=== PATIENT | female | born 1965 | race African-American/Black ===

== ENCOUNTER 2024-01-13 10:15 | Observation (INO) | payer BC ==
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
[2024-01-13] MEDS ORDERED: ACETAMINOPHEN 500 MG TAB ONE (10:35)
[2024-01-13 11:39] LABS: Absolute Basophils 0.1 K/uL (0-0.5); Absolute Eosinophils 0.2 K/uL (0-0.5); Absolute Lymphocytes (CBC) 2.2 K/uL (0.7-4.9); Absolute Monocytes 0.6 K/uL (0.1-1.3); Absolute Neutrophil 3.7 K/uL (1.8-8.0); Eosinophils % 2.3 % (0-4.4); Hematocrit 41.3 % (36.0-45.0); Hemoglobin 13.3 g/dL (12.0-15.0); Lymphocytes % 32.8 % (15.3-44.8); MCH 28.9 pg (27.0-35.0); MCHC 32.2 g/dL (32.0-36.0); MCV 89.6 fL (80-100); MPV 9.2 fL (7.6-11.3); Monocytes % 9.3 % (3.3-12.3); Neutrophils % 54.6 % (41.7-73.7); Platelets 227 thou/uL (152-406); Red Cell Distribution Width 15.8 % (12.1-15.2)
--- NOTE | 2024-01-13 12:04 | RAD REPORT ---
EXAM DESCRIPTION: Abhijit Single View01/13/2024 11:48 am CLINICAL HISTORY: Shortness of breath COMPARISON: none FINDINGS: The lungs appear clear of acute infiltrate. The heart is mildly to moderately enlarged IMPRESSION: No acute abnormalities displayed
[2024-01-13 12:48] LABS: Albumin/Globulin Ratio 0.8 (1.1-1.8); Anion Gap 3.2 mEq/L (5.0-15.0); Bilirubin Total 0.6 mg/dL (0.2-1.0); Globulin 3.7 g/dL (2.3-3.5); Potassium 3.2 mEq/L (3.5-5.1); Protein, Total 6.7 g/dL (6.4-8.2); Troponin High Sensitivity 28.2 pg/mL (<58.9)
--- NOTE | 2024-01-13 13:00 | ER ---
Nurse's Notes [facility] Name: Perri Belle Age: 58 yrs Sex: Female : 1965 Arrival Date: 01/13/2024 Time: 10:15 Bed 16 Private MD: Diagnosis: Volume Overload;Hypokalemia;QT Prolongation Presentation: 01/12 10:23 Chief complaint: Patient states: SOB X2 DAYS WITH LEFT ARM AND ELEUTERIO LEG PAIN. DENIES kc6 CHEST PAIN. 10:23 Coronavirus screen: At this time, the client does not indicate any symptoms associated kc6 with coronavirus-19. Ebola Screen: No symptoms or risks identified at this time. Initial Sepsis Screen: Does the patient meet any 2 criteria? No. Patient's initial sepsis screen is negative. Does the patient have a suspected source of infection? No. Patient's initial sepsis screen is negative. Risk Assessment: Do you want to hurt yourself or someone else? Patient reports no desire to harm self or others. Onset of symptoms was January 13, 2024. 10:23 Method Of Arrival: Wheelchair kc6 10:23 Acuity: RICH 3 kc6 Triage Assessment: 10:23 General: Appears in no apparent distress. uncomfortable, obese, well groomed, well kc6 developed, Behavior is calm, cooperative, appropriate for age. Pain: Complains of pain in left arm, right leg and left leg. EENT: No signs and/or symptoms were reported regarding the EENT system. Neuro: Level of Consciousness is awake, alert, obeys commands, Oriented to person, place, time, situation, Appropriate for age. Cardiovascular: Denies chest pain, Heart tones S1 S2 present Capillary refill < 3 seconds Edema is 3+ to left ankle, left foot, right ankle and right foot pitting to left ankle, left foot, right ankle and right foot Rhythm is sinus rhythm. Respiratory: Reports shortness of breath at rest on exertion Airway is patent Trachea midline Respiratory effort is even, pursed lip, Respiratory pattern is symmetrical, tachypnea Onset: The symptoms/episode began/occurred 2 DAYS AGO, the patient has moderate shortness of breath. GI: No signs and/or symptoms were reported involving the gastrointestinal system. : No signs and/or symptoms were reported regarding the genitourinary system. Derm: No signs and/or symptoms reported regarding the dermatologic system. Skin is intact, is healthy with good turgor, Skin is pink, warm \T\ dry. Musculoskeletal: No signs and/or symptoms reported regarding the musculoskeletal system. Circulation, motion, and sensation intact. Capillary refill < 3 seconds, Range of motion: intact in all extremities. Historical: - Allergies: 10: No Known Allergies; aa5 - Home Meds: 10: Lisinopril Oral [Active]; Albuterol Inhl [Active]; aa5 - PMHx: 10: Hypertensive disorder; aa5 - PSHx: 10: PARTIAL HYSTERECTOMY; aa5 - Immunization history:: Adult Immunizations up to date. - Infectious Disease History:: Denies. - Social history:: Smoking status: Patient/guardian denies using tobacco, the patient reports quitting approximately 5 years ago. Screenin:23 [facility] ED Fall Risk Assessment (Adult) History of falling in the last 3 months, kc6 including since admission No falls in past 3 months (0 pts) Confusion or Disorientation No (0 pts) Intoxicated or Sedated No (0 pts) Impaired Gait No (0 pts) Mobility Assist Device Used No (0 pt) Altered Elimination No (0 pt) Score/Fall Risk Level 0 - 2 = Low Risk. Abuse screen: Denies threats or abuse. Denies injuries from another. Nutritional screening: No deficits noted. Tuberculosis screening: No symptoms or risk factors identified. Assessment: 10:23 Reassessment: PLEASE SEE TRIAGE. kc6 11:26 Reassessment: Patient appears in no apparent distress at this time. No changes from 6 previously documented assessment. Patient and/or family updated on plan of care and expected duration. Pain level reassessed. Patient is alert, oriented x 3, equal unlabored respirations, skin warm/dry/pink. Patient states symptoms have not improved. 12:27 Reassessment: Patient appears in no apparent distress at this time. No changes from kc6 previously documented assessment. Patient and/or family updated on plan of care and expected duration. Pain level reassessed. Patient is alert, oriented x 3, equal unlabored respirations, skin warm/dry/pink. 13:27 Reassessment: Patient appears in no apparent distress at this time. No changes from [facility] previously documented assessment. Patient and/or family updated on plan of care and expected duration. Pain level reassessed. Patient is alert, oriented x 3, equal unlabored respirations, skin warm/dry/pink. 14:27 Reassessment: Patient appears in no apparent distress at this time. No changes from 6 previously documented assessment. Patient and/or family updated on plan of care and expected duration. Pain level reassessed. Patient is alert, oriented x 3, equal unlabored respirations, skin warm/dry/pink. 15:36 Reassessment: Patient appears in no apparent distress at this time. No changes from kc6 previously documented assessment. Patient and/or family updated on plan of care and expected duration. Pain level reassessed. Patient is alert, oriented x 3, equal unlabored respirations, skin warm/dry/pink. Patient states feeling better. Patient states symptoms have improved. Vital Signs: 10:23 BP 165 / 113; Pulse 99; Resp 20 S; Temp 97.7(O); Pulse Ox 100% on R/A; Weight 144.7 kg kc6 (R); Height 5 ft. 7 in. (R); 11:26 BP 163 / 103; Pulse 84; Resp 20 S; Pulse Ox 100% on R/A; kc6 14:31 BP 166 / 113; Pulse 99; Resp 19 S; Pulse Ox 99% on R/A; kc6 10:23 Body Mass Index 49.96 (144.70 kg, 170.18 cm) [facility] ED Course: 10:16 Patient arrived in ED. im 10:16 Carlos Diaz MD is Attending Physician. ec2 10:16 Arm band placed on. aa5 10:18 Natacha Tovar, RN is Primary Nurse. kc6 10:23 Patient has correct armband on for positive identification. Bed in low position. Call [facility] light in reach. Side rails up X2. Adult w/ patient. Client placed on continuous cardiac and pulse oximetry monitoring. NIBP monitoring applied. baker test on. Warm blanket given. Pillow given. 10:40 Triage completed. kc6 10:42 EKG done, by ED staff, reviewed by Carlos Diaz MD. [facility] 11:11 Inserted saline lock: 20 gauge in right antecubital area, using aseptic technique. nj1 Blood collected. Ultrasound guided. Catheter tip well visualized within vasculature during placement. 11:50 XRAY Chest (1 view) In Process Unspecified. EDMS 13:00 Evin Morse MD is Hospitalizing Provider. ec2 13:05 Kunal Uribe is Hospitalizing Provider. ec2 15:45 No provider procedures requiring assistance completed. Patient admitted, IV remains in kc6 place. Administered Medications: 10:38 Drug: Acetaminophen PO 1000 mg PO once Route: PO; kc6 11:42 Follow up: Response: No adverse reaction kc6 13:15 Drug: Magnesium Sulfate IVPB 2 grams IVPB once over 2 hrs Route: IVPB; Infused Over: 2 kc6 hrs; Site: right antecubital; 14:30 Follow up: Response: No adverse reaction; IV Status: Completed infusion; IV Intake: kc6 100ml 13:16 Drug: Potassium Chloride PO 40 mEq PO once Route: PO; kc6 14:30 Follow up: Response: No adverse reaction kc6 13:16 Drug: Furosemide IVP 40 mg IVP once; give over 2 minutes Route: IVP; Site: right kc6 antecubital; 14:30 Follow up: Response: No adverse reaction kc6 14:24 Drug: Potassium Chloride IV 20 mEq IV at calculated rate once; administer over 1-2 kc6 hours Route: IV; Rate: calculated rate; Site: right antecubital; 15:37 Follow up: Response: No adverse reaction; IV Status: Infusion continued upon admission; kc6 IV Intake: 100ml Medication: 15:45 VIS not applicable for this client. kc6 Intake: 14:30 IV: 100ml; Total: 100ml. kc6 15:37 IV: 100ml; Total: 200ml. kc6 Outcome: 13:00 Decision to Hospitalize by Provider. ec2 15:45 Admitted to Med/surg accompanied by tech, via wheelchair, room 212, with chart, Report kc6 called to report faxed 15:45 Condition: good 15:45 Instructed on the need for admit, 15:45 Patient left the ED. kc6 Signatures: Dispatcher [employer] EDMS Nakia Mcconnell RN RN aa5 Natacha Tovar RN RN kc6 Carley Ness RN RN nj1 Teresa Cochran Edwin, MD MD ec2 Corrections: (The following items were deleted from the chart) 10:42 10:23 Cardiovascular: Denies chest pain, Heart tones S1 S2 present Capillary refill < 3 kc6 seconds Rhythm is sinus rhythm kc6
--- NOTE | 2024-01-13 13:01 | EDPHYS ---
Physician Documentation [facility] Name: Perri Belle Age: 58 yrs Sex: Female : 1965 Arrival Date: 01/13/2024 Time: 10:15 Bed 16 Private MD: ED Physician Carlos Diaz HPI: 01/12 10:35 This 58 yrs old Black Female presents to ER via Unassigned with complaints of Breathing ec2 Difficulty, Leg Swelling. 10:35 Patient arrives today for evaluation of difficulty breathing and lower extremity ec2 swelling. Patient reports she been having worsening difficulty breathing for the past several days. Patient reports no history of CHF or cardiac disease that she is aware. Reports no significant chest pain, no fevers, does have recent cough and cold symptoms.. Historical: - Allergies: 10:23 No Known Allergies; aa5 - Home Meds: 10:23 Lisinopril Oral [Active]; Albuterol Inhl [Active]; aa5 - PMHx: 10:23 Hypertensive disorder; aa5 - PSHx: 10:23 PARTIAL HYSTERECTOMY; aa5 - Immunization history:: Adult Immunizations up to date. - Infectious Disease History:: Denies. - Social history:: Smoking status: Patient/guardian denies using tobacco, the patient reports quitting approximately 5 years ago. ROS: 10:35 Constitutional: as per hpi ec2 Exam: 10:35 Constitutional: GEN: NAD Head: atraumatic Eyes: EOMI Ears: External ears are ec2 normal. CV: regular rate, 2+ lower extremity edema. LUNGS: no respiratory distress ABD: non-distended SKIN: no evidence of rashes MSK: no evidence of trauma NEURO: moves all extremities equally Vital Signs: 10:23 BP 165 / 113; Pulse 99; Resp 20 S; Temp 97.7(O); Pulse Ox 100% on R/A; Weight 144.7 kg kc6 (R); Height 5 ft. 7 in. (R); 11:26 BP 163 / 103; Pulse 84; Resp 20 S; Pulse Ox 100% on R/A; kc6 14:31 BP 166 / 113; Pulse 99; Resp 19 S; Pulse Ox 99% on R/A; kc6 10:23 Body Mass Index 49.96 (144.70 kg, 170.18 cm) kc6 MDM: 10:19 Patient medically screened. ec2 10:35 Data reviewed: vital signs. ED course: Patient arrives today for evaluation of lower ec2 extremity swelling along with difficulty breathing. Examination remarkable for cardiovascular findings as above. Will obtain a cardiac evaluation including EKG and chest x-ray. Evaluate for ACS, CHF, electrolyte disturbances. EKG obtained, independently reviewed and interpreted by me, shows normal sinus rhythm, rate 94, no acute ST segment elevations, QTc at upper limit of normal.. 12:20 ED course: Chest x-ray independently reviewed and interpreted by me, shows ec2 cardiomegaly, no pleural effusion or marked fluid identified.. 12:54 ED course: Metabolic profile shows hypokalemia with a potassium of 3.2. BNP elevated at ec2 3400, troponin within normal ranges. Will give the patient Lasix, admit for further cardiac evaluation given the patient's reported dyspnea on exertion as well as patient's lower extremity edema. Will supplement patient's potassium which I suspect is the cause of the pt's qt prolongation. . 01/12 10:26 Order name: CBC with Diff; Complete Time: 11:43 ec2 01/12 10:26 Order name: Troponin HS; Complete Time: 12:53 ec2 01/12 10:26 Order name: CMP; Complete Time: 12:53 ec2 01/12 10:26 Order name: BNP; Complete Time: 12:53 ec2 01/12 10:26 Order name: XRAY Chest (1 view); Complete Time: 12:19 ec2 01/12 13:24 Order name: Echo with Doppler EDVT 01/12 10:26 Order name: Cardiac monitoring; Complete Time: 10:38 ec2 01/12 10:26 Order name: EKG - Nurse/Tech; Complete Time: 10:38 ec2 01/12 10:26 Order name: IV Saline Lock; Complete Time: 11:15 ec2 01/12 10:26 Order name: Labs collected and sent; Complete Time: 11:15 ec2 01/12 10:26 Order name: O2 Per Protocol; Complete Time: 10:26 ec2 01/12 10:26 Order name: O2 Sat Monitoring; Complete Time: 10:26 ec2 01/12 11:42 Order name: Labs - recollect needed: recollect light green top; Complete Time: 12:03 bd Administered Medications: 10:38 Drug: Acetaminophen PO 1000 mg PO once Route: PO; kc6 11:42 Follow up: Response: No adverse reaction kc6 13:15 Drug: Magnesium Sulfate IVPB 2 grams IVPB once over 2 hrs Route: IVPB; Infused Over: 2 kc6 hrs; Site: right antecubital; 14:30 Follow up: Response: No adverse reaction; IV Status: Completed infusion; IV Intake: kc6 100ml 13:16 Drug: Potassium Chloride PO 40 mEq PO once Route: PO; kc6 14:30 Follow up: Response: No adverse reaction kc6 13:16 Drug: Furosemide IVP 40 mg IVP once; give over 2 minutes Route: IVP; Site: right kc6 antecubital; 14:30 Follow up: Response: No adverse reaction kc6 14:24 Drug: Potassium Chloride IV 20 mEq IV at calculated rate once; administer over 1-2 kc6 hours Route: IV; Rate: calculated rate; Site: right antecubital; 15:37 Follow up: Response: No adverse reaction; IV Status: Infusion continued upon admission; kc6 IV Intake: 100ml Disposition: 12:59 Critical Care:. ec2 Disposition Summary: 01/13/24 13:00 Hospitalization Ordered Notes: Hospitalization Status: Inpatient Admission ec2 [facility] Condition: Stable ec2 Problem: new ec2 Symptoms: are unchanged ec2 Bed/Room Type: Standard ec2 Provider: Kunal Uribe(01/13/24 13:05) ec2 Room Assignment: [facility](01/13/24 14:50) bd Diagnosis - Volume Overload ec2 - Hypokalemia ec2 - QT Prolongation ec2 Forms: - Medication Reconciliation Form ec2 - SBAR form ec2 - Leadership Thank You Letter ec2 Critical care time excluding procedures: 12:59 Critical care time: Bedside Care: 30 minutes, Consultation: 5 minutes. Total time: 35 ec2 minutes Signatures: Dispatcher [employer] Cande King Audri RN RN aa5 Natacha Tovar RN RN kc6 Carlos Diaz MD MD ec2 Corrections: (The following items were deleted from the chart) 10:26 10:26 CBC+H.LAB.BRZ ordered. EDMS EDMS 10:26 10:26 Troponin High Sensitivity+C.LAB.BRZ ordered. EDMS EDMS 10: 10: COMPREHENSIVE METABOLIC PANEL+C.LAB.BRZ ordered. EDMS EDMS 10: 10: PROBNP+C.LAB.BRZ ordered. EDMS EDMS 10: 10: Chest Single View+RAD.RAD.BRZ ordered. EDMS EDMS 13:05 13:00 Evin Morse ec2 ec2 14:50 13:00 ec2 bd
[2024-01-13] MEDS ORDERED: POTASSIUM CL SA 10 MEQ TAB PO ONE (13:05)
[2024-01-13] MEDS ORDERED: FUROSEMIDE 40 MG/4 ML VIAL ONE (13:06)
[2024-01-13] MEDS ORDERED: NA CHLORIDE 0.9% 1,000 ML ONE (13:06)
[2024-01-13] MEDS ORDERED: Magnesium Sulfate 2gm IVPB 2 G/50 ML BAG IV ONE (13:06)
[2024-01-13] MEDS ORDERED: KCL 20 MEQ/100 mL IVPB 100 ML IV ONE (13:06)
--- NOTE | 2024-01-13 13:33 | P.HP ---
Certification for Inpatient Patient admitted to: Observation With expected LOS: <2 Midnights Patient will require the following post-hospital care: None Practitioner: I am a practitioner with admitting privileges, knowledge of patient current condition, hospital course, and medical plan of care. Services: Services provided to patient in accordance with Admission requirements found in Title 42 Section 412.3 of the Code of Federal Regulations Patient History Date of Service: 01/13/24 Reason for admission: Dyspnea History of Present Illness: 58-year-old female with history of hypertension, hyperlipidemia presents emergency department with 3 days of progressive shortness of breath, lower extremity edema. She has no known history of congestive heart failure. She was evaluated in the emergency department her labs are significant for elevated BNP 2426, potassium of 3.2 initial high-sensitivity troponin 28.2 EKG without STEMI criteria, QTc 500. Patient with pitting edema of the lower extremities, dyspnea at rest and also significantly with exertion. 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, lives at home with her - Family History Father -: Heart disease - Social History Smoking Status: Former smoker Alcohol use: No CD- Drugs: No Caffeine use: Yes Place of Residence: Home Review of Systems 10-point ROS is otherwise unremarkable Respiratory: Shortness of Breath, SOB with Excertion Cardiovascular: Edema Physical Examination - Physical Exam General: Alert, In no apparent distress, Oriented x3 HEENT: Atraumatic, PERRLA, EOMI Neck: Supple, 2+ carotid pulse no bruit, No LAD Respiratory: Clear to auscultation bilaterally, Normal air movement Cardiovascular: Regular rate/rhythm, Normal S1 S2, Edema (2+ pitting ELEUTERIO LE) Gastrointestinal: Normal bowel sounds Musculoskeletal: No tenderness Integumentary: No rashes Neurological: Normal speech, Normal strength at 5/5 x4 extr, Normal tone, Normal affect - Studies Laboratory Data (last 24 hrs) 01/13/24 01/13/24 12:09 11:11 WBC 6.70 Hgb 13.3 Hct 41.3 Plt Count 227 Sodium 138 Potassium 3.2 L BUN 17 Creatinine 0.92 Glucose 85 Total Bilirubin 0.6 AST 36 ALT 71 H Alkaline Phosphatase 125 H Assessment and Plan - Plan Assessment: Dyspnea, lower extremity edema suspected new onset CHF-unknown EF Hypokalemia Hypertension Hyperlipidemia Plan: Dyspnea, lower extremity edema suspected new onset CHF-unknown EF Echocardiogram, cardiology consult placed Continue diuresis with IV Lasix Lisinopril continued Trend cardiac enzymes, monitor on telemetry Hypokalemia Replaced in ED, protocol in place Hypertension Hyperlipidemia Continue lisinopril, atorvastatin DVT PPX:Lovenox Code status:Full Discharge Plan: Home Plan to discharge in: 24 Hours - Advance Directives Does patient have a Living Will: No Does patient have a Durable POA for Healthcare: No - Code Status/Comfort Care Code Status Assessed: Yes (Full code) Critical Care: No Time Spent Managing Pts Care (In Minutes): 70
--- NOTE | 2024-01-13 14:36 | EKG ---
Test Date: 2024-01-13 Test Time: 10:31:40 Stem Sizer: REINALDO MEASUREMENT RESULTS: Intervals: Rate: 94 CA: 162 QRSD: 98 QT: 400 QTc: 500 Pound: P: 79 CA: 162 QRS: 115 T: 59 INTERPRETIVE STATEMENTS: Normal sinus rhythm Right atrial enlargement Right axis deviation Pulmonary disease pattern Nonspecific T wave abnormality Prolonged QT Abnormal ECG No previous ECG available for comparison Electronically Signed On 01-13-24 14:35:57 CDT by Doc Pickett
[2024-01-13] MEDS ORDERED: ACETAMINOPHEN 500 MG TAB PO PRN (16:05)
[2024-01-13] MEDS: ENOXAPARIN 40 MG/0.4 ML SQ SCH (16:42)
[2024-01-13] MEDS: carvediloL 12.5 MG TAB PO SCH (16:42)
[2024-01-13] MEDS: FUROSEMIDE 40 MG/4 ML VIAL IV SCH (16:42)
[2024-01-13 17:02] VITALS: BMI 49.9
--- NOTE | 2024-01-13 20:51 | CON ---
Date of Consultation: 01/13/2024 Reason For Consultation: Shortness of breath and lower extremity edema. History Of Present Illness: A 58-year-old female, history of hypertension, dyslipidemia, morbid obes ity, who comes in with progressive shortness of breath, lower extremity edema. No orthopnea. No rafaela st pain. She said that she was seen by battery repairer and she was told that she does not have congesti ve heart failure in the past. Denies having any chest pain, and she was clearly fluid overloaded upo n admission with diuretics. She is doing significantly better. Past Medical History: Hypertension, dyslipidemia, and morbid obesity. Medications: Refer to reconciliation sheet for detailed list. Allergies: NO KNOWN DRUG ALLERGIES. Past Surgical History: Hysterectomy. Family History: No premature coronary artery disease or cancer. Social History: She does not smoke or drink. Does not use any drugs. Review of Systems: All systems reviewed and they were negative except as mentioned in the HPI. Physical Examination: Vital Signs: Reviewed. Head and Neck: Pupils are equal, reactive to light. Intact eye movements. Positive JVD. No cervic al lymphadenopathy. Neck is supple. Thyroid is not enlarged. Lungs: Faint crackles on bases. No accessory muscle use or muscle retraction. Heart: Regular rate and rhythm. No extra sounds. Abdomen: Soft, nontender. Bowel sounds positive. No organomegaly. No masses or hernia. No rigidi ty or rebound. Extremities: Edema 2+ bilaterally. No clubbing or cyanosis. Intact pulses. Skin: No rash. No nodule. Neurologic: Alert, awake, oriented x3. No acute focal deficits appreciated. Lymph Nodes: No cervical or axillary lymphadenopathy. Investigations: BUN is 17, creatinine 0.92. NT-proBNP 3426. Troponin is negative and hemoglobin 13 .3. Assessment And Recommendations: 1.Acute on chronic congestive heart failure exacerbation, has all the signs of heart failure. Recom mend IV diuretics and Lasix 40 mg IV q.12 hours. Obtain an echocardiogram and plan accordingly. 2.Hypertension. After diuresis, evaluate her blood pressure and adjust medications accordingly. 3.Dyslipidemia. Continue statin. SR/MODL Voice ID: [id number] Report ID: [id number]
[2024-01-13] MEDS ORDERED: lisinopriL 20 MG TAB PO SCH (21:00)
[2024-01-13] MEDS: ATORVASTATIN 10 MG TAB PO SCH (21:02)
[2024-01-14] MEDS: cloNIDine HCL 0.1 MG TAB PO ONE (05:26)
[2024-01-14 06:09] LABS: Absolute Eosinophils 0.2 K/uL (0-0.5); Absolute Lymphocytes (CBC) 2.5 K/uL (0.7-4.9); Absolute Monocytes 0.6 K/uL (0.1-1.3); Absolute Neutrophil 2.5 K/uL (1.8-8.0); Basophils % 0.7 % (0-1.3); Eosinophils % 2.9 % (0-4.4); Hematocrit 38.5 % (36.0-45.0); Hemoglobin 12.8 g/dL (12.0-15.0); Lymphocytes % 43.5 % (15.3-44.8); MCH 29.4 pg (27.0-35.0); MCHC 33.2 g/dL (32.0-36.0); MCV 88.6 fL (80-100); Monocytes % 9.6 % (3.3-12.3); Neutrophils % 43.3 % (41.7-73.7); Nucleated Red Blood Cells % 0.1 % (0-0); Platelets 220 thou/uL (152-406); RBC Red Blood Cell Count 4.35 M/uL (3.86-4.86); Red Cell Distribution Width 15.4 % (12.1-15.2)
[2024-01-14 06:35] LABS: Anion Gap 5.6 mEq/L (5.0-15.0); Magnesium 2.1 mg/dL (1.6-2.4); Potassium 3.6 mEq/L (3.5-5.1); Thyroid Stimulating Hormone 1.98 uIU/mL (0.358-3.740); Troponin High Sensitivity 18.6 pg/mL (<58.9)
[2024-01-14] MEDS: LOSARTAN POTASSIUM 50 MG TABLET PO SCH (08:06)
[2024-01-14] MEDS: POTASSIUM CL SA 10 MEQ TAB PO ONE (08:07)
[2024-01-14 09:27] VITALS: O2SAT 97
--- NOTE | 2024-01-14 11:58 | P.PN ---
Date of Service: 01/14/24 Subjective: Still with some dyspnea edema improved ROS: 10 point ROS as noted above, otherwise negative Physical exam GEN: Alert, oriented, NAD HEENT: Normal conjunctiva, sclera anicteric CV: Regular rate and rhythm, trace LE edema Pulm: Nonlabored respirations on room air ABD: Soft, nontender, nondistended MSK: No joint tenderness Integumentary: No rashes Neuro: Normal speech, normal affect Vitals reviewed Assessment: Dyspnea, lower extremity edema suspected new onset CHF-unknown EF Hypokalemia Hypertension Hyperlipidemia Plan: Dyspnea, lower extremity edema suspected new onset CHF-unknown EF Echocardiogram, cardiology consult placed Continue diuresis with IV Lasix Losartan, carvedilol continued Takes lasix at home await cardiology recs Hypokalemia Replaced in ED, protocol in place Hypertension Hyperlipidemia Continue losartan, atorvastatin DVT PPX:Lovenox Code status:Full Discharge Plan: Home Plan to discharge in: 24 Hours Time Spent Managing Pts Care (In Minutes): 35
--- NOTE | 2024-01-14 14:27 | ECHO ---
HEIGHT: 5 ft 7 in WEIGHT: 319 lb 0 oz DATE OF STUDY: 01/14/[address]: Ramon Parrish NP 2-DIMENSIONAL: YES M.MODE: YES DOPPLER: YES COLOR FLOW: YES TDS: PORTABLE: YES DEFINITY: BUBBLE STUDY: DIAGNOSIS: EDEMA, HYPERTENSION, POSSIBLE CONGESTIVE HEART FAILURE CARDIAC HISTORY: CATHERIZATION: NO SURGERY: NO PROSTHETIC VALVE: NO PACEMAKER: NO MEASUREMENTS (cm) DIASTOLIC (NORMALS) SYSTOLIC (NORMALS) IVSd 1.0 (0.6-1.2) LA Diam 3.1 (1.9-4.0) LVEF 45-50% LVIDd 4.9 (3.5-5.7) LVIDs 4.1 (2.0-3.5) %FS 18% LVPWd 1.2 (0.6-1.2) Ao Diam 2.3 (2.0-3.7) 2 DIMENSIONAL ASSESSMENT: RIGHT ATRIUM: NORMAL LEFT ATRIUM: NORMAL RIGHT VENTRICLE: NORMAL LEFT VENTRICLE: NORMAL TRICUSPID VALVE: TRACE MITRAL VALVE: MILD MITRAL REGURGITATION PULMONIC VALVE: MILD PULMONIC INSUFFICIENCY AORTIC VALVE: NORMAL PERICARDIAL EFFUSION: NONE AORTIC ROOT: NORMAL LEFT VENTRICULAR WALL MOTION: MILD GLOBAL HYPOKINESIS DOPPLER/COLOR FLOW: SEE BELOW COMMENTS: 1. MILDLY DEPRESSED LEFT VENTRICULAR EJECTION FRACTION 45-50% 2. MODERATE DIASTOLIC DYSFUNCTION 3. MILD GLOBAL HYPOKINESIS 4. MILD MITRAL REGURGITATION TECHNOLOGIST: GLORIA SHAW
[2024-01-14 16:35] VITALS: BP 161/75; TEMP 97.9
--- NOTE | 2024-01-14 16:49 | P.PN ---
Subjective Date of Service: 01/14/24 Chief Complaint: Dyspnea Subjective: No new changes Review of Systems 10-point ROS is otherwise unremarkable Physical Examination - Vital Signs Temperature: 97.9 F Blood Pressure: 161/75 Pulse: 78 Respirations: 18 Pulse Ox (%): 96 - Physical Exam General: Alert, Oriented x3 Neck: Supple Respiratory: Crackles/rales Cardiovascular: Normal S1 S2, Edema Gastrointestinal: Normal bowel sounds Assessment And Plan - Current Problems (Diagnosis) (1) Acute combined systolic and diastolic heart failure Current Visit: Yes Status: Acute Plan: Patient Echo shows mild reduced LV systolic function and diastolic dysfunction. continue Coreg 12.5 mg po BID Losartan 100 mg daily add Aldactone 25 mg daily Continue IV diuresis with Lasix 40 mg IV BID Monitor I&Os and correct electrolytes. Patient will need ischemia evaluation which can be done as outpatient also if she tolerate ARB well then will start process of switching to Entresto as outpatient. (2) HTN (hypertension) Current Visit: Yes Status: Acute Plan: as above.
--- NOTE | 2024-01-14 17:41 | P.DS ---
Admission Date: 01/13/24 Discharge Date: 01/14/24 Disposition: ROUTINE DISCHARGE Discharge Condition: GOOD Reason for Admission: Dyspnea Consultations: Cardiology- Dr. Cervantes Brief History of Present Illness: 58-year-old female with history of hypertension, hyperlipidemia presents emergency department with 3 days of progressive shortness of breath, lower extremity edema. She has no known history of congestive heart failure. She was evaluated in the emergency department her labs are significant for elevated BNP 2426, potassium of 3.2 initial high-sensitivity troponin 28.2 EKG without STEMI criteria, QTc 500. Patient with pitting edema of the lower extremities, dyspnea at rest and also significantly with exertion. ED provider wishes to admit for further evaluation and management of suspected new onset CHF Hospital Course: Assessment: Acute combined systolic/diastolic congestive heart failure Hypokalemia Hypertension Hyperlipidemia Patient was admitted to the hospital for dyspnea, lower extremity edema. She was treated with IV Lasix for diuresis and had significant improvement in her symptoms, she was evaluated by cardiology and had echocardiogram performed. Echocardiogram performed on 01/12 showed mildly depressed left ventricular ejection fraction 45 to 50%, moderate diastolic dysfunction, mild global hypokinesis, mild mitral regurgitation. Patient had significant improvement in her symptoms with IV diuresis, she reported that she had previously been on Lasix at home but had not been taking it the last couple months. Recommend patient continue taking Lasix 40 mg daily until otherwise instructed by her primary care doctor or pantographer. At home patient takes carvedilol 6.25 mg by mouth twice daily, this has been increased to 12.5 mg by mouth twice daily new prescription was sent to her pharmacy. Cardiology recommends addition of spironolactone 25mg daily as well which has also been sent to the pharmacy Additionally, in the past patient has been on lisinopril 20 mg by mouth twice daily or losartan 100 mg by mouth daily, she states she is currently taking lisinopril 20mg by mouth twice daily, patient was instructed not to take both of these medications together and to further clarify with her primary care doctor about which 1 she should be taking. Patient ambulatory, off of oxygen with significant movement of lower extremity edema, stable for discharge at this time. Please follow-up with your primary care doctor and pantographer in 1 to 2 weeks Vital Signs/Physical Exam: Temp Pulse Resp BP Pulse Ox 97.9 F 78 18 161/75 H 96 01/14/24 16:49 01/14/24 16:49 01/14/24 16:49 01/14/24 16:49 01/14/24 16:49 General: Alert, In no apparent distress, Oriented x3 HEENT: Atraumatic, PERRLA Neck: Supple, JVD not distended Respiratory: Clear to auscultation bilaterally, Normal air movement Cardiovascular: Regular rate/rhythm, Normal S1 S2 Gastrointestinal: Normal bowel sounds Musculoskeletal: No tenderness Integumentary: No rashes Neurological: Normal speech, Normal tone Laboratory Data at Discharge: WBC 5.80 thou/uL (4.3-10.9) 01/14/24 05:25 Hgb 12.8 g/dL (12.0-15.0) 01/14/24 05:25 Hct 38.5 % (36.0-45.0) 01/14/24 05:25 Plt Count 220 thou/uL (152-406) 01/14/24 05:25 Sodium 141 mEq/L (136-145) 01/14/24 05:25 Potassium 3.6 mEq/L (3.5-5.1) 01/14/24 05:25 BUN 15 mg/dL (7-18) 01/14/24 05:25 Creatinine 0.96 mg/dL (0.55-1.02) 01/14/24 05:25 Glucose 100 mg/dL (74-106) 01/14/24 05:25 Magnesium 2.1 mg/dL (1.6-2.4) 01/14/24 05:25 Total Bilirubin 0.6 mg/dL (0.2-1.0) 01/13/24 12:09 AST 36 U/L (15-37) 01/13/24 12:09 ALT 71 U/L (13-56) H 01/13/24 12:09 Alkaline Phosphatase 125 U/L (45-117) H 01/13/24 12:09 Triglycerides 70 mg/dL (<150) 01/14/24 05:25 Cholesterol 208 mg/dL (<200) H 01/14/24 05:25 HDL Cholesterol 69 mg/dL (40-60) H 01/14/24 05:25 Cholesterol/HDL Ratio 3.01 01/14/24 05:25 Home Medications: Atorvastatin Calcium [Lipitor*] 20 mg PO BEDTIME 01/13/24 lisinopriL [Lisinopril] 20 mg PO BID 01/13/24 Furosemide [Lasix] 40 mg PO DAILY #30 tab 01/14/24 Spironolactone [Aldactone] 25 mg PO DAILY #30 tab 01/14/24 carvediloL [Carvedilol] 12.5 mg PO BID #60 tab 01/14/24 New Medications: Spironolactone [Aldactone] 25 mg PO DAILY #30 tab carvediloL [Carvedilol] 12.5 mg PO BID #60 tab Furosemide [Lasix] 40 mg PO DAILY #30 tab Physician Discharge Instructions: Patient was admitted to the hospital for dyspnea, lower extremity edema. She was treated with IV Lasix for diuresis and had significant improvement in her symptoms, she was evaluated by cardiology and had echocardiogram performed. Echocardiogram performed on 01/12 showed mildly depressed left ventricular ejection fraction 45 to 50%, moderate diastolic dysfunction, mild global hypokinesis, mild mitral regurgitation. Patient had significant improvement in her symptoms with IV diuresis, she reported that she had previously been on Lasix at home but had not been taking it the last couple months. Recommend patient continue taking Lasix 40 mg daily until otherwise instructed by her primary care doctor or pantographer. At home patient takes carvedilol 6.25 mg by mouth twice daily, this has been increased to 12.5 mg by mouth twice daily new prescription was sent to her pharmacy. Cardiology recommends addition of spironolactone 25mg daily as well which has also been sent to the pharmacy Additionally, in the past patient has been on lisinopril 20 mg by mouth twice daily or losartan 100 mg by mouth daily, she states she is currently taking lisinopril 20mg by mouth twice daily, patient was instructed not to take both of these medications together and to further clarify with her primary care doctor about which 1 she should be taking. Patient ambulatory, off of oxygen with significant movement of lower extremity edema, stable for discharge at this time. Please follow-up with your primary care doctor and pantographer in 1 to 2 weeks Diet: AHA Activity: Ad jenn Followup: Francisco Cervantes MD [ACTIVE - CAN ADMIT] - 1-2 Weeks OOT,OOT [Primary Care Provider] - 1-2 Weeks Time spent managing pt's care (in minutes): 35
== END 2024-01-14 18:12 | disposition home or self-care (01) ==
LOC: ER 10:15 → ERHOLD 13:21 → 2ND 15:09
PROVIDERS: ADMIT Internal Medicine; ATTEND Hospitalist
DX: I50.41 Acute combined systolic (congestive) and diastolic (congestive) heart failure (principal); R60.9 Edema, unspecified; I10 Essential (primary) hypertension; E78.5 Hyperlipidemia, unspecified; E87.6 Hypokalemia; E66.01 Morbid (severe) obesity due to excess calories; Z68.43 Body mass index [BMI] 50.0-59.9, adult
CPT/HCPCS: 96365; 93005; 93306; 85025 ×2; 80048; 36415; 83735; 80061; 84443; 84484 ×3; 84439; 80053; 83880; 71045; 96375; 99285; J3480; J3475; J1940 ×4; J1650 ×2; J7030; G0378 ×4

== ENCOUNTER 2024-04-18 17:33 | Emergency (ER) | payer BC ==
--- OUTSIDE RECORDS SUMMARY | 2024-04-18 17:36 | XMS REPORT | Continuity of Care Document ---
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 Condition ED Disposition ED Disposition Disch - Home Condition Stable Comment -- Patient's Medications START taking these medications No medications on file CONTINUE taking these medications which have NOT CHANGED ALBUTEROL 90 MCG/ACTUATION INHALER Inhale 2 Puffs every 6 (six) hours as needed for Wheezing or Shortness of Breath. CARVEDILOL (COREG) 6.25 MG TABLET Take 1 tablet by mouth in the morning and 1 tablet in the evening. Take with meals. ERGOCALCIFEROL, VITAMIN D2, 1,250 MCG (50,000 UNIT) CAPSULE Take 1 capsule by mouth weekly. FUROSEMIDE 40 MG TABLET Take 1 tablet by mouth in the morning. LOSARTAN 100 MG TABLET Take 1 tablet by mouth in the morning. SEMAGLUTIDE, WEIGHT LOSS, (WEGOVY) 0.25 MG/0.5 ML PNIJ SC INJECTION inject 0.25 mg under the skin weekly. Start: 0.25mg SC qWeek x 4 Weeks; then 0.5mg SC qWeek x 4 Weeks; then 1mg SC qWeek x 4 Weeks; thes1.7mg SC qWeek x 4 Weeks; then 2.4mg qWeek. SEMAGLUTIDE, WEIGHT LOSS, (WEGOVY) 0.5 MG/0.5 ML PNIJ SC INJECTION Start: 0.25mg SC qWeek x 4 Weeks; then 0.5mg SC qWeek x 4 Weeks; then 1mg SC qWeek x 4 Weeks; thes1.7mg SC qWeek x 4 Weeks; then 2.4mg qWeek. SEMAGLUTIDE, WEIGHT LOSS, (WEGOVY) 1 MG/0.5 ML PNIJ SC INJECTION Start: 0.25mg SC qWeek x 4 Weeks; then 0.5mg SC qWeek x 4 Weeks; then 1mg SC qWeek x 4 Weeks; thes1.7mg SC qWeek x 4 Weeks; then 2.4mg qWeek. SEMAGLUTIDE, WEIGHT LOSS, (WEGOVY) 1.7 MG/0.75 ML PNIJ SC INJECTION Start: 0.25mg SC qWeek x 4 Weeks; then 0.5mg SC qWeek x 4 Weeks; then 1mg SC qWeek x 4 Weeks; thes1.7mg SC qWeek x 4 Weeks; then 2.4mg qWeek. START taking Modified Medications as Prescribed No medications on file STOP taking these medications No medications on file Future Appointments In 1 month Mitesh May DO [facility], [facility] In 1 month Chela Mock MD [facility] [employer] Dictation Software is used frequently and may produce errors. Promptly contact for obvious discrepancies. Karl Serna MD, FACEP, FAAEM Reservationist of Emergency and Internal Medicine [facility], [facility] #[id number] Karl Serna MD 09/24/23 1539 [facility] 2019-06-30 10:24:00 [facility] ([facility]) EMERGENCY PROVIDER REPORT REPORT#:[id number] REPORT STATUS: Signed DATE:06/30/19 TIME:1024 PATIENT: LAINE EL UNIT #: [id number] ROOM/BED: : 67 AGE: 54 SEX: F PCP PHYS: No Primary or Family Physician SERVICE AUTHOR: Rikki Thompson MD * ALL edits or amendments must be made on the electronic/computer document * HPI-URI/Cough/Cold General Confirmed Patient Yes Patient Type New patient Initial Greet Date/Time 06/30/19 1019 Presentation Chief Complaint Cough, non-productive, Nasal congestion, Upper resp infection Hx Obtained From Patient Onset Occurred Days ago (2) Symptom Duration Since onset Progression since Onset Unchanged Severity: Onset Mild Severity: Current Mild Associated with Reports: Cough. Denies: Chills, Ear pain/ache, Fever, Rhinorrhea, Sore throat, Sputum production, Vomiting. Exacerbated by Nothing Relieved by Nothing Context Related History Denies: Asthma, COPD. Immunization Status General Unknown Free Text HPI Notes Free Text HPI Notes 54 y/o F with no PMHx presents to the ED with c/o cough and nasal congestion for past 2 days. Pt reports constant dry cough with nasal congestion and pressure like pain to sinuses. She has no other sxs or modifying factors reported. No reports of any meds taken [employer]. Denies any fever, chills, sore throat, earaches, or any SOB. Portions of this section were scribed by Jesus Villar on 06/30/19 at 1251 Review of Systems ROS Statements All systems rev neg except as marked. Focused Review of Systems Constitutional Denies: Chills, Fever. Eyes Denies: Discharge bilat, Redness bilat. Ears/Nose/Throat Reports: Nasal congestion. Denies: Earache bilat, Sinus problem. Respiratory Reports: Cough, non-productive. Denies: Cough, productive, Dyspnea on exertion, Shortness of breath, Wheezing. GI Denies: Abdominal pain, Nausea, Vomiting. Skin Denies: Abrasion, Diaphoresis, Laceration, Rash, Swelling. Neurologic Denies: Dizziness, Generalized weakness, Headache. Additional Review of Systems Cardiovascular Denies: Chest pain, Dyspnea on exertion, Edema. Female Denies: Dysuria, Flank pain. Musculoskeletal Denies: Back pain, Extremity pain, Extremity swelling. Portions of this section were scribed by Jesus Villar on 06/30/19 at 1027 Past Medical History - Adult Stated Complaint COUGH, CONGESTION Allergies Uncoded Allergies: No Known Contrast Allergies (03/02/09) No Known Drug Allergies (03/02/09) No Known Food Allergies (03/02/09) No Known Other Allergies (03/02/09) Review of Nursing Notes Rev avail, and agree Pt reports no significant: Past medical history, Past surgical history Portions of this section were scribed by Jesus Villar on 06/30/19 at 1027 Physical Exam Vital Signs Vital Signs First Documented: Result Date Time Pulse Ox 100 [...] 1017 Review of Vital Signs Reviewed Focused PE General/Const General/Const Awake, Alert, No acute distress, Cooperative, Not toxic appearing Appearance/Presentation Obese. Eyes Eyes EOMI, No scleral icterus Ears/Nose/Throat Ears/Nose/Throat Airway patent, Mucous membranes moist, Pharynx NL MS Neck Neck Atraumatic, Supple, No meningismus, Full range of motion Resp/Chest Respiratory/Chest Breath sounds NL, Breath sounds = bilat, No respiratory distress Text/Dict Notes active cough during exam Cardiovascular Cardiovascular Heart rate NL, Regular rhythm, Heart sounds NL Abdomen/GI Abdomen/GI Soft, Non-tender, No distention Skin Skin No rash, Warm, Dry, Intact Neurologic Neurologic Oriented X3, Speech NL, Gait NL Portions of this section were scribed by Jesus Villar on 06/30/19 at 1251 Interpretation Diagnostics Point of Care Testing Pulse Oximetry Pulse Ox % 100 On: Room air Interpretation Interpreted by me, Pulse oximetry normal Time 1017 Portions of this section were scribed by Jesus Villar on 06/30/19 at 1024 Re-Evaluation MDM Free Text MDM Notes Additional Text Patient presents with sx of cough. Exam is unremarkable. DO not suspect PNA. Patient with normal VS. D/C with Rx for prednisone and cough suppressant. Differential Diagnosis Differential Diagnosis Bronchitis, Viral syndrome, viral URI, common cold Portions of this section were scribed by Jesus Villar on 06/30/19 at 1027 Patient Discharge Departure Vital Signs/Condition Vital Signs First Documented: Result Date Time Pulse Ox 100 [...] entry have been reviewed. Condition Stable Clinical Impression Clinical Impression Primary Impression: Acute bronchitis Disposition Decision Discharge )( Discharged to Home Yes )( Time 1024 )( Date 06/30/19 Discharge/Care Plan Counseled Regarding Diagnosis, Prescriptions, Need for follow-up, When to return to ED Prescriptions Bromfed, Prednisone Prescriptions Reviewed Risks, Benefits, Alternative treatment Discharge Note I have spoken with the patient and/or caregivers. I have explained the patient's condition, diagnoses and treatment plan based on the information available to me at this time. I have answered the patient's and/or caregiver's questions and addressed any concerns. The patient and/or caregivers have as good an understanding of the patient's diagnosis, condition and treatment plan as can be expected at this point. The vital signs have been stable. The patient's condition is stable and appropriate for discharge from the emergency department. The patient will pursue further outpatient evaluation with the primary care physician or other designated or consulting physician as outlined in the discharge instructions. The patient and/or caregivers are agreeable to this plan of care and follow-up instructions have been explained in detail. The patient and/or caregivers have received these instructions in written format and have expressed an understanding of the discharge instructions. The patient and/or caregivers are aware that any significant change in condition or worsening of symptoms should prompt an immediate return to this or the closest emergency department or a call to 911. Quality Measures Acute Bronchitis Ab No antibiotic given Supervising Physician Note Scribe Statement Jesus Villar, 06/30/19 1025, scribing for and in the presence of Dr. Thompson. Signed By: Jesus Villar, 06/30/19 1025 Provider Scribed Statement I personally performed the services described in this documentation and reviewed the documentation that was dictated to the scribe(s) in my presence, and it accurately records my words and actions. Rikki Thompson, 07/02/19 Portions of this section were scribed by Jesus Villar on 06/30/19 at 1251 at 1313 RPT #: [id number] END OF REPORT HCAPM
[2024-04-18] MEDS ORDERED: dexAMETHasone 10 MG/ML VIAL ONE (20:02)
[2024-04-18] MEDS ORDERED: ONDANSETRON 4 MG/2 ML VIAL ONE (20:02)
[2024-04-18] MEDS ORDERED: MORPHINE 4 MG/ML SYR ONE (20:03)
[2024-04-18 20:17] LABS: Absolute Basophils 0.1 K/uL (0-0.5); Absolute Eosinophils 0.2 K/uL (0-0.5); Absolute Lymphocytes (CBC) 2.7 K/uL (0.7-4.9); Absolute Monocytes 0.7 K/uL (0.1-1.3); Absolute Neutrophil 4.6 K/uL (1.8-8.0); Basophils % 1.2 % (0-1.3); Eosinophils % 1.9 % (0-4.4); Hematocrit 40.1 % (36.0-45.0); Hemoglobin 13.1 g/dL (12.0-15.0); Lymphocytes % 33.3 % (15.3-44.8); MCH 29.9 pg (27.0-35.0); MCHC 32.7 g/dL (32.0-36.0); MCV 91.2 fL (80-100); MPV 8.3 fL (7.6-11.3); Monocytes % 8.4 % (3.3-12.3); Neutrophils % 55.2 % (41.7-73.7); Nucleated Red Blood Cells % 0.1 % (0-0); Platelets 230 thou/uL (152-406); Red Cell Distribution Width 16.3 % (12.1-15.2)
[2024-04-18 20:25] LABS: Anion Gap 7.8 mEq/L (5.0-15.0)
[2024-04-18 20:26] LABS: Potassium 3.8 mEq/L (3.5-5.1)
[2024-04-18] MEDS ORDERED: cloNIDine HCL 0.1 MG TAB ONE (20:29)
[2024-04-18] MEDS ORDERED: MORPHINE 2 MG/ML SYR ONE (20:30)
--- NOTE | 2024-04-18 21:28 | RAD REPORT ---
EXAM DESCRIPTION: CT - Soft Tissue Neck W/Contr - 04/18/2024 8:58 pm CLINICAL HISTORY: Neck pain COMPARISON: None. TECHNIQUE: Computed axial tomography of the neck was obtained. 50 cc Isovue 300 was administered in travenously. Coronal and sagittal reconstruction was performed. All CT scans are performed using dose optimization technique as appropriate and may include automated exposure control or mA/KV adjustment according to patient size. FINDINGS: The pharynx, tongue base, larynx and subglottic trachea appear unremarkable The parotid, submandibular and thyroid glands appear unremarkable. No lymphadenopathy is seen No fluid within the sinuses/mastoids IMPRESSION: No significant abnormality is displayed
--- NOTE | 2024-04-18 21:44 | EDPHYS ---
Physician Documentation [facility] Name: Perri Belle Age: 58 yrs Sex: Female : 1965 Arrival Date: 04/18/2024 Time: 17:33 Bed IW10 Private MD: ED Physician Arturo Piedra HPI: 04/18 21:42 This 58 yrs old Black Female presents to ER via Ambulatory with complaints of Neck pain.kb 21:42 Pt is a 58 year old female who presents for right neck pain that started just behind kb right ear and radiates down right neck. Pain aggravated by movement and palpation. Alleviated when still. Denies fever, chills, injury. Historical: - Allergies: 18:33 No Known Allergies; cm10 - PMHx: 18:33 Hypertensive disorder; cm10 - PSHx: 18:33 partial hysterectomy; cm10 - Immunization history:: Adult Immunizations up to date. - Infectious Disease History:: Denies. - Social history:: Smoking status: Patient denies any tobacco usage or history of. ROS: 21:40 Constitutional: As per HPI kb Exam: 21:40 Constitutional: This is a well developed, well nourished patient who is awake, alert, kb and in no acute distress. Head/Face: Normocephalic, atraumatic. ENT: Moist Mucous membranes Cardiovascular: Regular rate Respiratory: Respirations even and unlabored. No increased work of breathing. Talking in full sentences Abdomen/GI: Soft, non-tender. No distention Skin: Warm, dry with normal turgor. Normal color. MS/ Extremity: Pulses equal, no cyanosis. Neurovascular intact. Full, normal range of motion. Neuro: Awake and alert, GCS 15, oriented to person, place, time, and situation. Moves all extremities. Normal gait. 21:40 Neck: External neck: tenderness, that is moderate, of the right lateral aspect of kb neck, ROM/movement: pain, that is moderate, with rotation to the right, Vital Signs: 18:27 BP 213 / 111; Pulse 85; Resp 16; Temp 97.7; Pulse Ox 100% ; Weight 135.17 kg; Height 5 cm10 ft. 7 in. ; Pain 10/10; 21:33 BP 157 / 91; Pulse 68; Resp 18; Pulse Ox 100% ; cp4 21:59 BP 155 / 98; Pulse 70; Resp 17 S; Pulse Ox 100% on R/A; ha1 18:27 Body Mass Index 46.67 (135.17 kg, 170.18 cm) cm10 18:27 Pain Scale: Adult cm10 MDM: 18:09 Patient medically screened. kb 21:41 Differential diagnosis: torticollis, mastoiditis, abscess. Data reviewed: vital signs, kb nurses notes. Counseling: I had a detailed discussion with the patient and/or guardian regarding the historical points, exam findings, and any diagnostic results supporting the discharge/admit diagnosis, lab results, radiology results, the need for outpatient follow up, a family practitioner, to return to the emergency department if symptoms worsen or persist or if there are any questions or concerns that arise at home. 04/18 18:23 Order name: CBC with Diff; Complete Time: 20:24 cm10 04/18 18:23 Order name: BMP; Complete Time: 20:29 cm10 04/18 18:23 Order name: CT Soft Tissue Neck W/contr; Complete Time: 21:28 cm10 04/18 18:23 Order name: IV Start; Complete Time: 20:01 cm10 04/18 21:28 Order name: Vital Signs; Complete Time: 21:34 kb Administered Medications: 20:00 Drug: Ondansetron IVP 4 mg IVP once; over 2 minutes Route: IVP; Site: right forearm; rg5 22:02 Follow up: Response: No adverse reaction; Marked relief of symptoms ha1 20:00 Drug: Decadron - Dexamethasone IVP 10 mg IVP once Route: IVP; Site: right forearm; rg5 22:02 Follow up: Response: No adverse reaction; Marked relief of symptoms ha1 20:00 Drug: morphine IVP or IV 2 mg IVP once over 4 mins Route: IVP; Infused Over: 4 mins; rg5 Site: right forearm; 22:02 Follow up: Response: No adverse reaction; Marked relief of symptoms ha1 20:20 Drug: cloNIDine PO 0.1 mg PO once Route: PO; rg5 22:02 Follow up: Response: No adverse reaction; Marked relief of symptoms ha1 20:30 Drug: morphine IVP or IV 2 mg IVP once over 4 mins Route: IVP; Infused Over: 4 mins; rg5 Site: right forearm; 22:02 Follow up: Response: No adverse reaction; Marked relief of symptoms; Pain is decreased; ha1 RASS: Alert and Calm (0) Disposition Summary: 04/18/24 21:43 Discharge Ordered Notes: Location: Home kb Condition: Stable kb Diagnosis - Torticollis kb Followup: kb - With: Emergency Department - When: As needed - Reason: Worsening of condition Followup: kb - With: Private Physician - When: 2 - 3 days - Reason: Recheck today's complaints, Continuance of care, Re-evaluation by your physician Discharge Instructions: - Discharge Summary Sheet kb - Acute Torticollis, Adult kb Forms: - Medication Reconciliation Form kb - Antibiotic Education kb - Prescription Opioid Use kb - Patient Portal Instructions kb - Leadership Thank You Letter kb Prescriptions: - Prednisone 20 mg Oral Tablet - take 1 tablet ORAL route once daily for 5 days; 5 tablet; Refills: 0, Product kb Selection Permitted - Cyclobenzaprine 10 mg Oral tablet - take 1 tablet ORAL route every 8 hours As needed; 15 tablet; Refills: 0, kb Product Selection Permitted - Diclofenac Sodium 75 mg Oral tablet, delayed release (enteric coated) - take 1 tablet ORAL route 2 times per day As needed; 30 tablet; Refills: 0, kb Product Selection Permitted Signatures: Dispatcher [employer] Daylin Witt, CUPOLA LINER-C CUPOLA LINER-Vida Adkins, RN RN cm10 Salvador Martinez RN RN rg5 Adriana Saldaña RN ha1 Corrections: (The following items were deleted from the chart) 21:41 21:40 Constitutional: This is a well developed, well nourished patient who is awake, kb alert, and in no acute distress. kb
--- NOTE | 2024-04-18 21:44 | ER ---
Nurse's Notes [facility] Name: Perri Belle Age: 58 yrs Sex: Female : 1965 Arrival Date: 04/18/2024 Time: 17:33 Bed IW10 Private MD: Diagnosis: Torticollis Presentation: 04/18 18:27 Chief complaint: Patient states: Right sided neck pain onset yesterday. Pt states that cm10 the pain radiates down to left shoulder. Coronavirus screen: Client denies travel out of the [place] in the last 14 days. At this time, the client does not indicate any symptoms associated with coronavirus-19. Ebola Screen: Patient denies travel to an Ebola-affected area in the 21 days before illness onset. No symptoms or risks identified at this time. Initial Sepsis Screen: Does the patient meet any 2 criteria? No. Patient's initial sepsis screen is negative. Does the patient have a suspected source of infection? No. Patient's initial sepsis screen is negative. Risk Assessment: Do you want to hurt yourself or someone else? Patient reports no desire to harm self or others. Onset of symptoms was April 18, 2024. 18:27 Method Of Arrival: Ambulatory cm10 18:27 Acuity: RICH 3 cm10 Triage Assessment: 18:33 General: Appears in no apparent distress. uncomfortable, Behavior is calm, cooperative. cm10 Neuro: No deficits noted. Level of Consciousness is awake, alert, obeys commands, Oriented to person, place, time, situation, Appropriate for age. Historical: - Allergies: 18:33 No Known Allergies; cm10 - PMHx: 18:33 Hypertensive disorder; cm10 - PSHx: 18:33 partial hysterectomy; cm10 - Immunization history:: Adult Immunizations up to date. - Infectious Disease History:: Denies. - Social history:: Smoking status: Patient denies any tobacco usage or history of. Screenin:[facility] ED Fall Risk Assessment (Adult) History of falling in the last 3 months, ha1 including since admission Yes- single mechanical fall (1 pt) Confusion or Disorientation No (0 pts) Intoxicated or Sedated No (0 pts) Impaired Gait Yes (1 pt) Mobility Assist Device Used Yes (1 pt) Altered Elimination No (0 pt) Score/Fall Risk Level 3 or more points = High Risk Oriented to surroundings, Maintained a safe environment, Educated pt \T\ family on fall prevention, incl call for assistance when getting out of bed, Assessed \T\ reinforced patient's understanding of fall precautions, Hourly rounding (assess needs \T\ fall precautionary measures) done. Abuse screen: Denies threats or abuse. Denies injuries from another. Nutritional screening: No deficits noted. Tuberculosis screening: No symptoms or risk factors identified. Assessment: 21:59 Reassessment: Patient and/or family updated on plan of care and expected duration. Pain ha1 level reassessed. Patient is alert, oriented x 3, equal unlabored respirations, skin warm/dry/pink. Patient states feeling better. Patient states symptoms have improved. Vital Signs: 18:27 BP 213 / 111; Pulse 85; Resp 16; Temp 97.7; Pulse Ox 100% ; Weight 135.17 kg; Height 5 cm10 ft. 7 in. ; Pain 10/10; 21:33 BP 157 / 91; Pulse 68; Resp 18; Pulse Ox 100% ; cp4 21:59 BP 155 / 98; Pulse 70; Resp 17 S; Pulse Ox 100% on R/A; ha1 18:27 Body Mass Index 46.67 (135.17 kg, 170.18 cm) cm10 18:27 Pain Scale: Adult cm10 ED Course: 17:34 Patient arrived in ED. mr 18:08 Jeronimo Daylin[facility] kb 18:08 Arturo Piedra MD is Attending Physician. kb 18:33 Triage completed. cm10 18:34 Arm band placed on Patient placed in waiting room. cm10 19:34 Salvador Martinez, KRISTINA is Primary Nurse. rg5 20:01 BMP Sent. cm10 20:01 CBC with Diff Sent. cm10 20:01 Accessed peripheral vein via ultrasound, utilizing dynamic ultrasound technique Blood cm10 collected. Clean \T\ dry. Dressing intact. Good blood return. Flushes easily. 20G right forearm. 20:10 Patient has correct armband on for positive identification. Placed in gown. Bed in low ha1 position. Call light in reach. Side rails up X2. Adult w/ patient. 20:59 CT Soft Tissue Neck W/contr In Process Unspecified. EDMS 22:00 No provider procedures requiring assistance completed. IV discontinued, intact, ha1 bleeding controlled, No redness/swelling at site. Pressure dressing applied. 22:01 Provided Education on: follow up . ha1 Administered Medications: 20:00 Drug: Ondansetron IVP 4 mg IVP once; over 2 minutes Route: IVP; Site: right forearm; rg5 22:02 Follow up: Response: No adverse reaction; Marked relief of symptoms ha1 20:00 Drug: Decadron - Dexamethasone IVP 10 mg IVP once Route: IVP; Site: right forearm; rg5 22:02 Follow up: Response: No adverse reaction; Marked relief of symptoms ha1 20:00 Drug: morphine IVP or IV 2 mg IVP once over 4 mins Route: IVP; Infused Over: 4 mins; rg5 Site: right forearm; 22:02 Follow up: Response: No adverse reaction; Marked relief of symptoms ha1 20:20 Drug: cloNIDine PO 0.1 mg PO once Route: PO; rg5 22:02 Follow up: Response: No adverse reaction; Marked relief of symptoms ha1 20:30 Drug: morphine IVP or IV 2 mg IVP once over 4 mins Route: IVP; Infused Over: 4 mins; rg5 Site: right forearm; 22:02 Follow up: Response: No adverse reaction; Marked relief of symptoms; Pain is decreased; ha1 RASS: Alert and Calm (0) Medication: 22:00 VIS not applicable for this client. ha1 Outcome: 21:43 Discharge ordered by . aylin 22:01 Discharged to home ambulatory, with family, ha1 22:01 Condition: stable 22:01 Discharge instructions given to patient, family, Instructed on discharge instructions, follow up and referral plans. medication usage, Demonstrated understanding of instructions, follow-up care, medications, Prescriptions given X 3, 22:03 Patient left the ED. ha1 Signatures: Dispatcher [employer] EDMS Daylin Decker, OMAIRA-C [employer]-Marsha Weber, Damian Salgado mr Adriana Saldaña RN RN ha1 Vida Del Real RN RN cm10 Jayshree Jiménez cp4 Salvador Martinez RN RN rg5
[2024-04-18 22:07] VITALS: TEMP 97.7; O2SAT 100
[2024-04-18 22:10] VITALS: BP 155/98
== END 2024-04-18 22:03 | disposition home or self-care (01) ==
LOC: ER 17:33
DX: M43.6 Torticollis (principal)
CPT/HCPCS: 85025; 80048; 36415; 70491; 96375; 96374; 99285; Q9967; J1100; J2270; J2405